=== PATIENT | male | born 1965 | race Caucasian/White ===

== ENCOUNTER 2020-03-19 12:00 | Outpatient (CLI) | payer BC, SELFPAY ==
[~2020-03-19] VITALS: Ht 177.8 cm; Wt 106.6 kg
[2020-03-20] MEDS ORDERED: PERC10 PO (14:04)
[2020-03-20] MEDS ORDERED: OMEP20CA15 PO (14:04)
[2020-03-20] MEDS ORDERED: AMLO5TAB4 PO (14:04)
[2020-03-20] MEDS ORDERED: ASCO500T20 PO (14:04)
[2020-03-20] MEDS ORDERED: NEU300 PO (14:04)
[2020-03-20] MEDS ORDERED: FER300L PO (14:04)
[2020-03-20] MEDS ORDERED: IBUP-1970 PO (14:04)
[2020-03-20] MEDS ORDERED: LISI-600 PO (14:04)
[2020-03-20] MEDS ORDERED: BACL10TA PO (14:04)
== END 2020-03-19 12:30 | disposition home or self-care (01) ==
LOC: SLB 12:00 → EDSTATUS 03-23 07:30
PROVIDERS: ATTEND Colon & Rectal Surgery
DX: Z01.812 Encounter for preprocedural laboratory examination (principal); Z20.828 Contact with and (suspected) exposure to other viral communicable diseases; K57.92 Diverticulitis of intestine, part unspecified, without perforation or abscess without bleeding
CPT/HCPCS: U0003-CS

== ENCOUNTER 2020-04-27 07:30 | Inpatient (IN) | payer BC, SELFPAY ==
[~2020-04-27] VITALS: Ht 177.8 cm; Wt 107.0 kg
[~2020-04-27 07:30] MED LIST: AMLO5TAB4 PO; ASCO500T20 PO; BACL10TA PO; FER300L PO; IBUP-1970 PO; LISI-600 PO; NEU300 PO; OMEP20CA15 PO; PERC10 PO
[2020-04-27] MEDS ORDERED: cefOXitin SODIUM 2 GM in D5W 100 ML IV ONE (09:15)
[2020-04-27] MEDS ORDERED: ALVIMOPAN 12 MG CAPSULE PO ONE (09:15)
[2020-04-27] MEDS ORDERED: NS IRRIG SOLN 1000 ML IR ONE (11:08)
[2020-04-27] MEDS ORDERED: LR 1,000 ML IV.SOLN IV ONE (11:08)
[2020-04-27] MEDS ORDERED: ETOMIDATE 20 MG/ 10 ML VIAL (AMIDATE) IVP ONE (11:08)
[2020-04-27] MEDS ORDERED: METOPROLOL TARTRATE 5 MG/5 ML VIAL IVP ONE (11:08)
[2020-04-27] MEDS ORDERED: SEVOFLURANE 15 MIN GAS INH ONE (11:08)
[2020-04-27] MEDS ORDERED: PROPOFOL 200MG/ 20ML VIAL (DIPRIVAN) IV ONE (11:08)
[2020-04-27] MEDS ORDERED: ROCURONIUM BROMIDE 10 MG/ML (ZEMURON) IV ONE (11:08)
[2020-04-27] MEDS ORDERED: DEXAMETHASONE SOD PHOSPHATE 4 MG/ML VIAL IVP ONE (11:08)
[2020-04-27] MEDS ORDERED: NS 1000 ML IV.SOLN IV ONE (11:08)
[2020-04-27] MEDS ORDERED: MORPHINE SULFATE 10MG/10ML PF AMP EP ONE (11:08)
[2020-04-27] MEDS ORDERED: SUCCINYLCHOLINE CHLORIDE 20 MG/ML(QUELICIN) IVP ONE (11:08)
[2020-04-27] MEDS ORDERED: BUPIVACAINE LIPOSOME/PF 266 MG/20 ML VIAL INFIL ONE (11:13)
[2020-04-27] MEDS ORDERED: ONDANSETRON HCL 4 MG/2 ML VIAL IVP PRN ×3 (12:45→15:30)
[2020-04-27] MEDS ORDERED: DIPHENHYDRAMINE INJ 50 MG/ML VIAL IM PRN (12:45)
[2020-04-27] MEDS ORDERED: MEPERIDINE HCL/PF 25 MG/ML DISP.SYRIN IVP PRN (12:45)
[2020-04-27] MEDS ORDERED: MORPHINE SULFATE 10MG/10ML PF AMP SP SCH (12:45)
[2020-04-27] MEDS ORDERED: METOCLOPRAMIDE HCL 10 MG/2 ML VIAL IVP PRN (12:45)
[2020-04-27] MEDS ORDERED: MORPHINE 4 MG/ML INJ. SYRINGE IVP PRN (12:45)
[2020-04-27] MEDS ORDERED: KETOROLAC TROMETHAMINE 30 MG VIAL IVP PRN (12:45)
[2020-04-27] MEDS ORDERED: NALOXONE HCL 0.4 MG/ML AMP (NARCAN) IVP PRN ×3 (15:30)
[2020-04-27] MEDS ORDERED: ACETAMINOPHEN 325 MG TABLET PO PRN (15:30)
[2020-04-27] MEDS ORDERED: HYDROmorphone 1 MG INJ. 1 MG/ML AMPUL IVP PRN (15:30)
[2020-04-27] MEDS ORDERED: HYDROcodone/ACETAMIN 5-325 MG TAB (NORCO/ VICODIN) PO PRN (15:30)
[2020-04-27 16:34] LABS: HEMATOCRIT 40.7 % (36-54); HEMOGLOBIN 13.3 g/dL (14.0-18.0)
[2020-04-27 17:34] LABS: CALCIUM 8.1 mg/dL (8.4-11.0); CREATININE 1.03 mg/dL (0.55-1.30); POTASSIUM 4.4 mmol/L (3.5-5.1)
[2020-04-27] MEDS ORDERED: HYDROmorphone 1 MG INJ. 1 MG/ML AMPUL ONE (17:47)
[2020-04-27 18:30] VITALS: BP_SYST 137
[2020-04-27] MEDS: LR 1,000 ML IV SCH ×2 (18:35→20:04)
[2020-04-27 19:52] VITALS: BP_SYST 124
[2020-04-27 20:00] VITALS: BP_SYST 130
[2020-04-27] MEDS: cefOXitin SODIUM 2 GM in D5W 100 ML IV SCH (20:58)
[2020-04-27] MEDS: FAMOTIDINE PF 20 MG/2 ML VIAL IVP SCH (20:58)
[2020-04-27] MEDS: ALVIMOPAN 12 MG CAPSULE PO SCH (20:58)
[2020-04-27] MEDS: D5/0.45 NS 1,000 ML IV SCH (20:59)
[2020-04-27] MEDS: HYDROcodone/ACETAMIN 5-325 MG TAB (NORCO/ VICODIN) PO PRN (23:56)
[2020-04-28 00:43] VITALS: BP_SYST 130
[2020-04-28] MEDS: D5/0.45 NS 1,000 ML IV SCH ×3 (01:30→21:38)
[2020-04-28] MEDS: HYDROcodone/ACETAMIN 5-325 MG TAB (NORCO/ VICODIN) PO PRN ×3 (04:40→14:23)
[2020-04-28 07:07] LABS: BASOPHILS % (AUTO) 0.3 % (0.0-2.0); HEMATOCRIT 34.8 % (36-54); HEMOGLOBIN 11.6 g/dL (14.0-18.0); LYMPHOCYTES # (AUTO) 1.4 K/uL (1.0-5.5); LYMPHOCYTES % (AUTO) 13.2 % (20.5-51.5); MEAN CORPUSCULAR HEMOGLOBIN 31 pg (27-31); MEAN CORPUSCULAR HGB CONC 33 % (32-36); MEAN CORPUSCULAR VOLUME 92 fL (79.0-98.0); MONOCYTES # (AUTO) 1.4 K/uL (0.0-1.0); MONOCYTES % (AUTO) 12.7 % (1.7-9.3); NEUTROPHILS % (AUTO) 73.8 % (40.0-70.0); PLATELET COUNT (AUTO) 315 K/uL (130-430); RED CELL DISTRIBUTION WIDTH 15.4 % (9.0-15.0); WHITE BLOOD COUNT (AUTO) 10.8 K/uL (4.8-10.8)
[2020-04-28 07:17] LABS: CALCIUM 8.2 mg/dL (8.4-11.0); CREATININE 0.9 mg/dL (0.55-1.30); POTASSIUM 4.4 mmol/L (3.5-5.1); TOTAL BILIRUBIN 0.4 mg/dL (0.0-1.0)
[2020-04-28 08:00] VITALS: BP_SYST 127
[2020-04-28] MEDS: cefOXitin SODIUM 2 GM in D5W 100 ML IV SCH (09:12)
[2020-04-28] MEDS: ENOXAPARIN SODIUM 30 MG/0.3 ML SYRINGE SUBCUT SCH (09:13)
[2020-04-28] MEDS: FAMOTIDINE PF 20 MG/2 ML VIAL IVP SCH ×2 (09:14→21:25)
[2020-04-28] MEDS: ALVIMOPAN 12 MG CAPSULE PO SCH ×2 (09:14→21:25)
[2020-04-28] MEDS: LORazepam 2 MG/ML VIAL IVP PRN ×2 (10:42→17:15)
[2020-04-28] MEDS: METOCLOPRAMIDE HCL 10 MG/2 ML VIAL IVP SCH ×2 (14:23→17:15)
[2020-04-28 16:05] VITALS: BP_SYST 140
[2020-04-28 20:45] VITALS: BP_SYST 164
[2020-04-28 23:15] VITALS: BP_SYST 154
[2020-04-29] MEDS: LORazepam 2 MG/ML VIAL IVP PRN ×2 (03:49→11:41)
[2020-04-29] MEDS: METOCLOPRAMIDE HCL 10 MG/2 ML VIAL IVP SCH ×2 (05:45→11:46)
[2020-04-29] MEDS: HYDROcodone/ACETAMIN 5-325 MG TAB (NORCO/ VICODIN) PO PRN ×2 (05:46→14:24)
[2020-04-29] MEDS: D5/0.45 NS 1,000 ML IV SCH (06:42)
[2020-04-29 08:20] VITALS: BP_SYST 148
[2020-04-29] MEDS: ALVIMOPAN 12 MG CAPSULE PO SCH (09:08)
[2020-04-29] MEDS: FAMOTIDINE PF 20 MG/2 ML VIAL IVP SCH (09:08)
[2020-04-29] MEDS: ENOXAPARIN SODIUM 30 MG/0.3 ML SYRINGE SUBCUT SCH (09:10)
[2020-04-29 12:36] VITALS: BP_SYST 138
[2020-04-29 16:00] VITALS: BP_SYST 146
[2020-04-29 16:14] VITALS: BP_SYST 138
== END 2020-04-29 17:00 | disposition home or self-care (01) | DRG 983 ==
LOC: SMU 09:00
PROVIDERS: ADMIT Colon & Rectal Surgery; ATTEND Colon & Rectal Surgery
PROC: 0DTP0ZZ Resection of Rectum, Open Approach (ICD-10-PCS; 2020-04-27)
PROC: 0DTJ0ZZ Resection of Appendix, Open Approach (ICD-10-PCS; 2020-04-27)
PROC: 0DJD8ZZ Inspection of Lower Intestinal Tract, Via Natural or Artificial Opening Endoscopic (ICD-10-PCS; 2020-04-27)
PROC: 0DBN0ZZ Excision of Sigmoid Colon, Open Approach (ICD-10-PCS; principal; 2020-04-27 10:10)
DX: N32.1 Vesicointestinal fistula (principal); I10 Essential (primary) hypertension; M54.9 Dorsalgia, unspecified; G89.29 Other chronic pain; F41.9 Anxiety disorder, unspecified; F32.9 Major depressive disorder, single episode, unspecified; G47.00 Insomnia, unspecified; M17.10 Unilateral primary osteoarthritis, unspecified knee; Z96.643 Presence of artificial hip joint, bilateral; Z20.828 Contact with and (suspected) exposure to other viral communicable diseases; Z79.899 Other long term (current) drug therapy; Z79.1 Long term (current) use of non-steroidal anti-inflammatories (NSAID); Z80.49 Family history of malignant neoplasm of other genital organs
CPT/HCPCS: 36415; 80048; 80053; 85018-TC; 85025; 87081; 88307; 97110-GP; 97116-GP; 97530-GP; C1727; C9290; J0330; J0694; J1100; J1170; J1650; J2060; J2274; J2704; J2765; J3490; J7030; J7060; J7120; U0003